=== PATIENT | female | born 1950 | race Caucasian/White ===

== ENCOUNTER 2017-04-21 22:48 | Emergency (ER) | payer OTHER ==
[~2017-04-21] VITALS: Ht 165.1 cm; Wt 102.0 kg
[2017-04-21] MEDS ORDERED: LOSA50TA37 PO (23:03)
[2017-04-21] MEDS ORDERED: HYDR25TA PO (23:03)
[2017-04-21] MEDS ORDERED: AMLO-512 PO (23:03)
[2017-04-21] MEDS ORDERED: KETO5DRO6 OU (23:03)
[2017-04-21] MEDS ORDERED: SIMV-260 PO (23:03)
[2017-04-21] MEDS ORDERED: BRINOS OU (23:03)
[2017-04-21] MEDS ORDERED: LORazepam 1 MG TABLET PO ONE (23:15)
[2017-04-21] MEDS ORDERED: MECLIZINE HCL 25 MG TABLET PO ONE (23:15)
[2017-04-21 23:21] LABS: BASOPHILS % (AUTO) 0.3 % (0.0-2.0); EOSINOPHILS % (AUTO) 0.9 % (1.0-6.0); HEMATOCRIT 41.1 % (36-46); LYMPHOCYTES # (AUTO) 1.4 K/uL (1.0-4.8); LYMPHOCYTES % (AUTO) 11.5 % (22.0-44.0); MEAN CORPUSCULAR HEMOGLOBIN 30.3 pg (26.0-34.0); MEAN CORPUSCULAR HGB CONC 34.1 G/dL (31.0-37.0); MEAN CORPUSCULAR VOLUME 89 fL (80-100); MONOCYTES # (AUTO) 0.8 K/uL (0.1-1.0); MONOCYTES % (AUTO) 6.6 % (2.0-9.0); NEUTROPHILS # (AUTO) 9.8 K/uL (1.8-7.7); NEUTROPHILS % (AUTO) 80.7 % (40.0-70.0); PLATELET COUNT (AUTO) 246 K/uL (150-450); RED BLOOD CELL COUNT(AUTO) 4.62 MIL/uL (4.00-5.20); RED CELL DISTRIBUTION WIDTH 13.6 % (11.5-14.5); WHITE BLOOD COUNT (AUTO) 12.1 K/uL (4.5-11.0)
[2017-04-21] MEDS ORDERED: LORazepam 2 MG/ML VIAL IVP ONE (23:30)
[2017-04-21] MEDS ORDERED: METOCLOPRAMIDE HCL 5 MG/ML 2 ML VIAL IVP ONE (23:30)
[2017-04-21 23:31] LABS: INR 0.9 (0.9-1.1); PROTHROMBIN TIME 9.9 SEC (9.4-11.6)
[2017-04-21 23:43] LABS: ALANINE AMINOTRANSFERASE 20 U/L (12-78); ALBUMIN 3.9 g/dL (3.4-5.0); ANION GAP 10 mmol/L (8-16); ASPARTATE AMINOTRANSFERASE 18 U/L (15-37); BILIRUBIN,TOTAL 0.5 mg/dL (0.1-1.0); CARBON DIOXIDE 27 mmol/L (22-29); CHLORIDE 104 mmol/L (98-107); CREATINE KINASE, TOTAL 37 U/L (26-192); CREATININE 1.03 mg/dL (0.60-1.30); GLOMERULAR FILTR. RATE CALC 54 mL/min (>60); SODIUM SERUM 141 mmol/L (136-145); TOTAL PROTEIN, SERUM 7.3 g/dL (6.4-8.2); UREA NITROGEN, BLOOD 16 mg/dL (7-18)
[2017-04-21 23:45] LABS: POTASSIUM 2.9 mmol/L (3.5-5.1)
[2017-04-22] MEDS: POTASSIUM CHL 10 MEQ/WATER 50 ML IV SCH ×2 (00:40→01:39)
[2017-04-22] MEDS ORDERED: LORazepam 2 MG/ML VIAL IVP ONE (01:30)
[2017-04-22 03:43] VITALS: BP 114/62
[2017-04-22] MEDS ORDERED: PROMETHAZINE HCL 25 MG/ML VIAL IM ONE (04:00)
== END 2017-04-22 04:17 | disposition home or self-care (01) ==
LOC: EMS 22:50
DX: R42 Dizziness and giddiness (principal); R11.2 Nausea with vomiting, unspecified; J45.909 Unspecified asthma, uncomplicated; I10 Essential (primary) hypertension
CPT/HCPCS: 70450; 71010; 80053; 82550; 84484; 85025; 85610; 93005; 96361; 96372; 96374; 96375; 96376; 99285; J2060 ×2; J2550; J2765; J3480